=== PATIENT | male | born 1965 | race Two or more races ===

== ENCOUNTER 2025-02-20 12:04 | Inpatient (IN) | payer OTHER ==
[2025-02-20 12:43] VITALS: BMI 21.6
[2025-02-20] MEDS ORDERED: IBUPROFEN 600 MG TABLET (FP) PO PRN (14:14)
[2025-02-20] MEDS ORDERED: ACETAMINOPHEN 325 MG TABLET (FP) PO PRN (14:14)
[2025-02-20] MEDS ORDERED: LOPERAMIDE HCL 2 MG CAPSULE PO PRN (14:14)
[2025-02-20] MEDS ORDERED: BISMUTH SUBSALICYLATE 524 MG/30 ML PO PRN (14:14)
[2025-02-20] MEDS ORDERED: MAG HYDROX/AL HYDROX/SIMETH 30 ML UNIT-DOSE CUP PO PRN (14:14)
[2025-02-20] MEDS ORDERED: DICYCLOMINE HCL 10 MG CAPSULE PO PRN (14:14)
[2025-02-20] MEDS ORDERED: guaiFENesin 600 MG TABLET.ER (FP) PO PRN (14:14)
[2025-02-20] MEDS ORDERED: NALOXONE (NARCAN) HCL 4 MG/0.1 ML SPRAY NS PRN (14:14)
[2025-02-20] MEDS ORDERED: BENZOCAINE/MENTHOL (CHLORASEPTIC ) LOZENGE MM PRN (14:14)
[2025-02-20] MEDS ORDERED: BENZONATATE 200 MG CAPSULE PO PRN (14:14)
[2025-02-20] MEDS ORDERED: POLYETHYLENE GLYCOL (HEALTHYLAX) 3350 17 GM PACKET PO PRN (14:14)
[2025-02-20] MEDS ORDERED: IBUPROFEN 400 MG TABLET (FP) PO PRN (14:14)
[2025-02-20] MEDS ORDERED: ONDANSETRON *ODT* 4 MG TABLET SL PRN (14:14)
[2025-02-20] MEDS ORDERED: MAGNESIUM HYDROX 2400MG/30ML ORAL SUSPENSION 30 ML CUP PO PRN (14:14)
[2025-02-20] MEDS: cloNIDine HCL 0.1 MG TABLET PO SCH (18:33)
[2025-02-20] MEDS: NICOTINE POLACRILEX 2 MG LOZENGE BC SCH (18:33)
[2025-02-20] MEDS: SULFAMETHOXAZOLE/TRIMETHOPRIM 800MG/160MG D.S. TABLET PO SCH (22:53)
[2025-02-20] MEDS: MELATONIN 5 MG TABLETS PO SCH (22:53)
[2025-02-20] MEDS: THIAMINE 100 MG TABLET PO SCH (22:54)
[2025-02-21] MEDS: PRENATAL VITAMINS W/ FOLIC ACID TABLET (FP) PO SCH (09:50)
[2025-02-21] MEDS ORDERED: methaDONE HCL 10 MG TABLET PO SCH (10:00)
[2025-02-21] MEDS: METHOCARBAMOL 500 MG TABLET PO PRN (22:18)
[2025-02-22] MEDS ORDERED: cloNIDine HCL 0.1 MG TABLET PO PRN
[2025-02-22] MEDS: methaDONE HCL 10 MG TABLET PO ONE (09:34)
[2025-02-22 13:13] VITALS: RESP 16
[2025-02-22] MEDS: hydrOXYzine PAMOATE 25 MG CAPSULE (FP) PO PRN (22:14)
[2025-02-23 08:44] VITALS: TEMP 97.7
[2025-02-23 12:35] VITALS: BP 107/76; PULSE 66
[2025-02-24] MEDS ORDERED: methaDONE HCL 10 MG TABLET PO ONE (10:00)
[2025-02-26] MEDS ORDERED: methaDONE HCL 10 MG TABLET PO ONE (10:00)
== END 2025-02-23 14:55 | disposition home or self-care (01) | DRG 773 ==
LOC: YASAS 12:04 → Y6N 15:08
PROVIDERS: ADMIT Allergy & Immunology; ATTEND Allergy & Immunology
PROC: HZ2ZZZZ Detoxification Services for Substance Abuse Treatment (ICD-10-PCS; principal; 2025-02-20)
DX: F11.23 Opioid dependence with withdrawal (principal); F14.20 Cocaine dependence, uncomplicated; F13.20 Sedative, hypnotic or anxiolytic dependence, uncomplicated; F12.20 Cannabis dependence, uncomplicated; F17.210 Nicotine dependence, cigarettes, uncomplicated; F31.9 Bipolar disorder, unspecified; L03.113 Cellulitis of right upper limb; L03.115 Cellulitis of right lower limb; Z56.0 Unemployment, unspecified; Z59.00 Homelessness unspecified
CPT/HCPCS: 80305; 80307; 93005; 93010